=== PATIENT | male | born 1945 | race American Indian/Alaskan Native ===

== ENCOUNTER 2021-06-02 14:29 | Emergency (ER) | payer OTHER ==
[2021-06-02] MEDS ORDERED: TETANUS,DIPH,PERTUSS(ACELL) VACCINE 0.5 ML SYRINGE IM ONE (18:04)
--- NOTE | 2021-06-02 18:38 | Emergency Department Report ---
ED General Adult HPI - General Chief complaint: Extremity Injury, Lower Stated complaint: HIP PAIN Time Seen by Provider: 06/02/21 17:24 Source: patient Mode of arrival: Wheelchair Limitations: No Limitations - History of Present Illness Initial comments: 76-year-old male with a past medical history of hypertension not currently on medications presents hospital via EMS after fall. Patient reports he has been having right hip pain for unknown amount of time. Today he fell and reports that he cannot ambulate secondary to pain. Patient is currently staying at a motel and was planning to fly back home to [place] today. He was visiting his family in [facility]. There is some question about the accuracy of patient's birthdate which was initially reported as 06/12/1963. Patient does not have ID on him with his birthday. He states year is 2020. He denies hitting his head during his fall but has obvious abrasion to left lateral brow and orb it. Last tetanus status unknown. Patient also is disheveled with clothes and smells like urine. Patient is affiliated with the [facility] with no previous medical record here for review. Patient is vaccinated for Covid. [facility] to [facility] of [facility]'s (since [facility] was [facility] obtained by [facility] as well). His phone is so unable to contact famil Triage nurse reports that patient informed him that he fell yesterday. pt reports he has chronic urinary incontinence and has history of catheter use. Severity scale (0 -10): 4 - Related Data Previous Rx's Medication Instructions Recorded Last Taken Type Amlodipine Besylate [Norvasc] 5 mg PO DAILY #30 tablet 06/02/21 Unknown Rx Ibuprofen [Motrin] 600 mg PO Q8H PRN #20 tablet 06/02/21 Unknown Rx traMADoL [Ultram 50 MG tab] 50 mg PO Q6HR PRN #14 tablet 06/02/21 Unknown Rx Allergies Allergy/AdvReac Type Severity Reaction Status Date / Time No Known Allergies Allergy Verified 06/02/21 13:31 ED Review of Systems ROS: Stated complaint: HIP PAIN Other details as noted in HPI Comment: All other systems reviewed and negative ED Past Medical Hx - Past Medical History Hx Dementia: Yes - Medications Home Medications: Home Medications Medication Instructions Recorded Confirmed Last Taken Type Amlodipine Besylate [Norvasc] 5 mg PO DAILY #30 tablet 06/02/21 Unknown Rx Ibuprofen [Motrin] 600 mg PO Q8H PRN #20 tablet 06/02/21 Unknown Rx traMADoL [Ultram 50 MG tab] 50 mg PO Q6HR PRN #14 tablet 06/02/21 Unknown Rx ED Physical Exam - General Limitations: No Limitations - Other Other exam information: General: No acute distress, closer smell like urine Head: Abrasion to left lateral brow and orbit Eyes: normal appearance ENT: Moist mucous membranes Neck: Normal appearance, no midline tenderness Chest: Clear to auscultation bilaterally CV: Regular rate and rhythm Abdomen: Soft, normal bowel sounds, nontender, nondistended, no rebound or guarding Back: Normal inspection, nontender, no bruit Extremity: Patient does not have any deformity to her right hip. Full range of motion with passive movement without pain. Patient reports feel he has pain with pressure during walking Neuro: Alert O x 3, no facial asymmetry, speech clear, no gross motor sensory deficit Psych: Appropriate behavior Skin: No rash ED Course Vital Signs 06/02/21 06/02/21 06/02/21 13:30 14:40 21:03 Temperature 97.5 F L Pulse Rate 63 54 L Respiratory 16 18 Rate Blood Pressure 94/74 Blood Pressure 144/89 202/98 [Left] O2 Sat by Pulse 99 100 99 Oximetry 06/02/21 06/02/21 06/02/21 21:15 21:31 21:45 Temperature Pulse Rate Respiratory Rate Blood Pressure 94/74 94/74 94/74 Blood Pressure [Left] O2 Sat by Pulse 100 100 100 Oximetry 06/02/21 06/02/21 06/02/21 21:54 21:58 22:00 Temperature Pulse Rate 59 L 65 Respiratory 18 Rate Blood Pressure 152/95 137/95 Blood Pressure 132/97 [Left] O2 Sat by Pulse 100 100 Oximetry 06/02/21 06/02/21 06/02/21 22:15 22:31 22:45 Temperature Pulse Rate Respiratory Rate Blood Pressure 137/95 137/95 137/95 Blood Pressure [Left] O2 Sat by Pulse 100 100 100 Oximetry 06/02/21 06/02/21 06/02/21 23:00 23:15 23:31 Temperature Pulse Rate Respiratory Rate Blood Pressure 110/76 110/76 110/76 Blood Pressure [Left] O2 Sat by Pulse 100 100 99 Oximetry 06/02/21 06/03/21 06/03/21 23:45 00:00 00:16 Temperature Pulse Rate Respiratory Rate Blood Pressure 77/25 70/22 70/22 Blood Pressure [Left] O2 Sat by Pulse 99 100 Oximetry 06/03/21 06/03/21 06/03/21 01:00 01:30 02:00 Temperature Pulse Rate 59 L Respiratory 17 Rate Blood Pressure 111/81 111/80 123/81 Blood Pressure 107/83 [Left] O2 Sat by Pulse 97 Oximetry 06/03/21 06/03/21 06/03/21 02:30 03:00 03:31 Temperature Pulse Rate Respiratory Rate Blood Pressure 107/83 118/88 47/27 Blood Pressure [Left] O2 Sat by Pulse Oximetry 06/03/21 06/03/21 06/03/21 04:30 04:31 05:00 Temperature Pulse Rate 52 L Respiratory 18 Rate Blood Pressure 132/88 77/45 Blood Pressure 132/88 [Left] O2 Sat by Pulse 99 Oximetry 06/03/21 06/03/21 06/03/21 06:01 06:23 06:33 Temperature Pulse Rate Respiratory Rate Blood Pressure 95/55 95/55 73/22 Blood Pressure [Left] O2 Sat by Pulse 100 Oximetry 06/03/21 06/03/21 13:38 18:07 Temperature 97.9 F 97.8 F Pulse Rate 59 L 89 Respiratory 18 18 Rate Blood Pressure Blood Pressure 170/74 138/72 [Left] O2 Sat by Pulse 99 99 Oximetry - Reevaluation(s) Reevaluation #1: 06/02/21 19:[address] cervical spine. He does not have neck pain ED Medical Decision Making - Lab Data Result diagrams: 06/02/21 18:35 06/02/21 18:35 Lab Results 06/02/21 06/02/21 Range/Units 18:35 18:35 WBC 6.0 (4.5-11.0) K/mm3 RBC 3.41 L (3.65-5.03) M/mm3 Hgb 9.5 L (11.8-15.2) gm/dl Hct 30.6 L (35.5-45.6) % MCV 90 (84-94) fl MCH 28 (28-32) pg MCHC 31 L (32-34) % RDW 20.4 H (13.2-15.2) % Plt Count 401 (140-440) K/mm3 Lymph % (Auto) 12.2 L (13.4-35.0) % [place] % (Auto) 8.7 H (0.0-7.3) % Eos % (Auto) 2.1 (0.0-4.3) % Baso % (Auto) 1.5 (0.0-1.8) % Lymph # (Auto) 0.7 L (1.2-5.4) K/mm3 [place] # (Auto) 0.5 (0.0-0.8) K/mm3 Eos # (Auto) 0.1 (0.0-0.4) K/mm3 Baso # (Auto) 0.1 (0.0-0.1) K/mm3 Seg Neutrophils % 75.5 H (40.0-70.0) % Seg Neutrophils # 4.5 (1.8-7.7) K/mm3 Sodium 141 (137-145) mmol/L Potassium 4.1 (3.6-5.0) mmol/L Chloride 102.6 (98-107) mmol/L Carbon Dioxide 24 (22-30) mmol/L Anion Gap 19 mmol/L BUN 20 (9-20) mg/dL Creatinine 1.2 (0.8-1.3) mg/dL Estimated GFR > 60 ml/min BUN/Creatinine Ratio 17 % Glucose 86 (75-100) mg/dL Calcium 9.3 (8.4-10.2) mg/dL Magnesium 1.90 (1.7-2.3) mg/dL Total Bilirubin 0.30 (0.1-1.2) mg/dL AST 18 (5-40) units/L ALT 14 (7-56) units/L Alkaline Phosphatase 77 (35-129) units/L Total Protein 7.2 (6.3-8.2) g/dL Albumin 3.8 L (3.9-5) g/dL Albumin/Globulin Ratio 1.1 % - Radiology Data Radiology results: report reviewed RIGHT HIP 2 VIEW(S) INDICATION / CLINICAL INFORMATION: hip pain fall COMPARISON: None available. FINDINGS: BONES / JOINT(S): No acute fracture or subluxation. No significant arthritis. SOFT TISSUES: No significant abnormality. ADDITIONAL FINDINGS: None. NONENHANCED CT SCAN OF THE HEAD: INDICATION / CLINICAL INFORMATION: 76 years Male; fall with head injury confusion. TECHNIQUE: Routine CT head without contrast. All CT scans at this location are performed using CT dose reduction for ALARA by means of automated exposure control. COMPARISON: None. FINDINGS: BRAIN / INTRACRANIAL CONTENTS: No intracranial sequela from the trauma; left supraorbital scalp hematoma extending into the periarticular orbital space; no fluid level in the paranasal sinuses No acute hemorrhage, mass effect, midline shift, hydrocephalus, or acute, large territorial infarct. Chronic ischemia in the left side of jessica; periventricular low- attenuation areas due to chronic small vessel disease; small chronic lacunae in both basal ganglia CRANIOCERVICAL JUNCTION: No significant abnormality. ORBITS: Ocular globes and retrobulbar are spaces normal bilaterally SINUSES / MASTOIDS: No significant abnormality of the visualized paranasal sinuses or mastoid air cells. ADDITIONAL FINDINGS: None. IMPRESSION: No intracranial sequela from the trauma; left supraorbital scalp scalp hematoma extending into the left periorbital space - Medical Decision Making During ED stay it is evident that patient is obviously confused about recent events. Initially was thought he felt today, then he said yesterday, that he says several days ago. He states he missed his flight today but he states he missed his flight yesterday due to his deterioration inability to ambulate. Patient states he did come to visit family at [place] resides in [facility]. He is currently staying at a motel in the area. He does not have ID with his date of but does have a [facility] card. Patient also stating he has not had anything to eat for 3 days. Patient's ED work-up is unremarkable awaiting urine collection walker ordered pain meds case management for safe d/c planning norvasc for chronic untreated htn as per case management note upon chart review 06/03/21 12:21 - Eap Clinician Note by ZIGGY SMITH [facility] Num: [id number] : 1945 Patient Age: 76 SW Ramilaeziovesna received a call from patient son Abdulkadirmidway at [phone] and her stated that patient birthday 06/12/1944. Son reported that patient has a home in [place] and has dementia. Patient son stated that patient is fixated on going back to [place] and fleed from [place] to [place] to get a ticket to [place]. Patient was found at the [place] station and was taken to [facility] in [place]. Patient nephew, Douglas, picked him up and took him to a hotel where he fell and was brought to [facility]. Patient family reports that patient is resistant to termite helper care and signs himself out when entered into a facility. Family is seeking guardianship over patient and wants patient to return to [facility]. SW notified [facility] that his dad was being discharged and is medically cleared so someone will have to come and get him. Patient son stated that Caden Laurent will come and get patient [phone]. Initialized on 06/03/21 12:21 - END OF NOTE Critical Care Time: No Critical care attestation.: If time is entered above; I have spent that time in minutes in the direct care of this critically ill patient, excluding procedure time. ED Disposition Clinical Impression: Fall, Minor head injury, Confusion, Chronic hypertension, Right hip pain, Scalp hematoma, Dementia Disposition: 01 HOME / SELF CARE / HOMELESS Is pt being admited?: No Condition: Stable Instructions: Hip Pain, Facial or Scalp Contusion, Confusion, Hypertension, Adult, Hypertension (ED) Additional Instructions: Take the medication as prescribed. Follow-up with your doctor or doctor/clinic provided. Return if symptoms worsen as indicated by your discharge instructions. Prescriptions: Ibuprofen [Motrin] 600 mg PO Q8H PRN #20 tablet PRN Reason: Pain Amlodipine Besylate [Norvasc] 5 mg PO DAILY #30 tablet traMADoL [Ultram 50 MG tab] 50 mg PO Q6HR PRN #14 tablet PRN Reason: Pain Referrals: PRIMARY CARE, [Primary Care Provider] - 3-5 Days [facility] [Provider Group] - 3-5 Days Time of Disposition: 21:07
[2021-06-02 18:52] LABS: Basophils # (Auto) 0.1 K/mm3 (0.0-0.1); Basophils % (Auto) 1.5 % (0.0-1.8); Eosinophils # (Auto) 0.1 K/mm3 (0.0-0.4); Eosinophils % (Auto) 2.1 % (0.0-4.3); Hematocrit 30.6 % (35.5-45.6); Hemoglobin 9.5 gm/dl (11.8-15.2); Lymphocytes # (Auto) 0.7 K/mm3 (1.2-5.4); Lymphocytes % (Auto) 12.2 % (13.4-35.0); Mean Corpuscular HGB Conc 31 % (32-34); Mean Corpuscular Volume 90 fl (84-94); Monocytes # (Auto) 0.5 K/mm3 (0.0-0.8); Monocytes % (Auto) 8.7 % (0.0-7.3); Platelet Count 401 K/mm3 (140-440); Red Blood Count 3.41 M/mm3 (3.65-5.03)
[2021-06-02 18:58] LABS: Red Cell Distribution Width 20.4 % (13.2-15.2)
[2021-06-02 19:17] LABS: Alanine Aminotransferase 14 units/L (7-56); Albumin 3.8 g/dL (3.9-5); BUN/Creatinine Ratio 17; Blood Urea Nitrogen 20 mg/dL (9-20); Calcium 9.3 mg/dL (8.4-10.2); Hemolysis Index 3
--- NOTE | 2021-06-02 19:25 | XRay Report ---
RIGHT HIP 2 VIEW(S) INDICATION / CLINICAL INFORMATION: hip pain fall COMPARISON: None available. FINDINGS: BONES / JOINT(S): No acute fracture or subluxation. No significant arthritis. SOFT TISSUES: No significant abnormality. ADDITIONAL FINDINGS: None. Signer Name: Jesus Hayward MD Signed: 06/02/2021 7:21 PM Workstation Name: [id number]
[2021-06-02] MEDS ORDERED: KETOROLAC 30 MG/1 ML INJ IM ONE (19:51)
[2021-06-02] MEDS ORDERED: traMADol 50 MG TAB PO ONE (20:03)
[2021-06-02] MEDS ORDERED: IBUPROFEN 800 MG TAB PO ONE (20:03)
--- NOTE | 2021-06-02 20:44 | Cat Scan Report ---
NONENHANCED CT SCAN OF THE HEAD: INDICATION / CLINICAL INFORMATION: 76 years Male; fall with head injury confusion. TECHNIQUE: Routine CT head without contrast. All CT scans at this location are performed using CT dos e reduction for ALARA by means of automated exposure control. COMPARISON: None. FINDINGS: BRAIN / INTRACRANIAL CONTENTS: No intracranial sequela from the trauma; left supraorbital scalp hemat navid extending into the periarticular orbital space; no fluid level in the paranasal sinuses No acute hemorrhage, mass effect, midline shift, hydrocephalus, or acute, large territorial infarct. Chronic ischemia in the left side of jessica; periventricular low-attenuation areas due to chronic small vessel disease; small chronic lacunae in both basal ganglia CRANIOCERVICAL JUNCTION: No significant abnormality. ORBITS: Ocular globes and retrobulbar are spaces normal bilaterally SINUSES / MASTOIDS: No significant abnormality of the visualized paranasal sinuses or mastoid air eileen ls. ADDITIONAL FINDINGS: None. IMPRESSION: No intracranial sequela from the trauma; left supraorbital scalp scalp hematoma extending into the le ft periorbital space Signer Name: Ofe Sullivan MD Signed: 06/02/2021 8:40 PM Workstation Name: [id number]
[2021-06-02] MEDS ORDERED: amLODIPine 5 MG TAB PO ONE (21:02)
[2021-06-02] MEDS ORDERED: traMADol 50 MG TAB PO PRN (21:06)
[2021-06-02] MEDS ORDERED: IBUPROFEN 600 MG TAB PO PRN (21:06)
[2021-06-03] MEDS ORDERED: SODIUM CHLORIDE 0.9% 1000 ML 1,000 ML IV ONE (06:27)
[2021-06-03] MEDS ORDERED: amLODIPine 5 MG TAB PO SCH (10:00)
[2021-06-03 18:08] VITALS: BP 138/72
== END 2021-06-03 18:07 | disposition home or self-care (01) ==
LOC: EDBD → ED 14:29
DX: S09.90XA Unspecified injury of head, initial encounter (principal); S00.03XA Contusion of scalp, initial encounter; M25.551 Pain in right hip; F03.90 Unspecified dementia, unspecified severity, without behavioral disturbance, psychotic disturbance, mood disturbance, and anxiety; R41.0 Disorientation, unspecified; I10 Essential (primary) hypertension; W19.XXXA Unspecified fall, initial encounter; Y93.89 Activity, other specified; Y92.89 Other specified places as the place of occurrence of the external cause; Y99.8 Other external cause status
CPT/HCPCS: 36415; 70450; 73502; 80048; 80053; 83735; 85025; 90471; 96360; 99285; J7030; Q0162